=== PATIENT | male | born 1970 | race Hispanic/Latino ===

== ENCOUNTER → 2017-06-19 | Day surgery (SDC) | payer OTHER ==
[~2017-06-19] VITALS: Ht 185.4 cm; Wt 139.3 kg
[~2017-06-19] MED LIST: ACETAMINOPHEN325 M2 PO
--- NOTE | 2017-06-19 15:13 | Operative Report ---
Operative/Inv Procedure Report Surgery Date: 06/19/17 Name of Procedure: Cystoscopy, left ureteroscopy, laser lithotripsy of left midureteral calculi, laser lithotripsy of left renal calculi, insertion of left double-J ureteral stent Pre-Operative Diagnosis: Left ureteral and left renal calculi Post-Operative Diagnosis: Same Estimated Blood Loss: less than 50ml Surgeon/Senior Care Manager: Cody Bean MD Anesthesia: laryngeal mask airway Specimens: Left ureteral stone fragments and the urine culture Complications: None Condition: Stable Operative Indication: Left hydronephrosis due to left ureteral calculi, nonobstructing left lower pole renal calculi Operative/Procedure Note Note: The patient was taken to the cystoscopy room and identified. As placed in supine position on the cystoscopy table. Timeout was executed appropriately with the patient awake. Gen. anesthesia was induced via LMA. He was then placed in dorsolithotomy position and prepped and draped in usual fashion for cystoscopy. A surgical pause was executed appropriately. Fluoroscopy images taken with a marker on the left side of the abdomen to confirm the correct side of surgery as well as a correct orientation of the fluoroscopy image. No opaque calculus in the lower pole of the left kidney as well as in the left midureter about 2 cm above the inferior border of the left sacroiliac joint. A 22 American cystoscope sheath was placed into the bladder under direct vision. Anterior urethra was normal. The prostatic urethra showed mild hypertrophy but without high-grade lateral obstruction. Upon entering the bladder cystoscopy was performed. There is no evidence of bladder tumor or stone. Ureteral orifices were both normal in location and appearance. A guidewire was placed into the left ureteral orifice and advance up to the level of the left kidney. The cystoscope was removed leaving the guidewire in place. The rigid ureteroscope was advanced through the urethra into the left ureter. A couple centimeters above the lower border of the left sacroiliac joint at least 2 stones were seen. Using the 225 holmium laser fiber the stones were fragmented. Spiral basket was used to remove some of the fragments. At this point the rigid ureteroscope was advanced proximally as far as possible. The ureter above this area was dilated but there were no further stone seen. This point a double-lumen dilating catheter was placed over the guidewire. Over the second wire was placed a ureteral access sheath. With the safety wire and placed the flexible ureteroscope was advanced through the access sheath. The proximal ureter was dilated but without stones. Upon entering the bladder the renal pelvis was free of stones. However in the lower pole a sizable stone was seen. Using the holmium laser the stone in the lower pole left kidney was partially fragmented. It was difficult to manipulate the laser fiber to completely fragment the stone. The ureteroscope was then removed together with the ureteral access sheath. No ureteral stones were seen. Cystoscope was back loaded onto the guidewire. Open -ended catheter was placed over the wire and the wire removed. Some contrast was injected to outline the left renal collecting system. Guidewire was placed back through the open-ended catheter which was removed. Under visual fluoroscopic control a 26 cm 6 American left double-J ureteral stent was placed. Fluoroscopy confirmed the proximal and the stent coiled in the left renal pelvis and the distal end coiled in the bladder. A long suture was left attached the distal end of the stent exiting the urethra. Patient tolerated the procedure well and as completion was taken recovery room in stable condition. Findings: Several stones in the left ureter just above the inferior border of the left sacroiliac joint, 1-1/2 cm stone in the lower pole left kidney Discharge Disposition: PACU
--- NOTE | 2017-06-20 16:20 | RADIOLOGY REPORT ---
EXAMINATION: XR ABDOMEN CLINICAL INDICATION: Left ureteroscopy, lithotripsy, retrograde and stent insertion in the operating room. COMPARISON: None. TECHNIQUE: Intraoperative fluoroscopic guidance was provided for Dr. Bean to perform the above procedures. FLUOROSCOPY TIME: 59 seconds. FLUOROSCOPIC IMAGES PROVIDED FOR INTERPRETATION: 10 FINDINGS: Intraoperative fluoroscopic spot views demonstrate retrograde nephroureterograms demonstrating filling defects within the left collecting system. A double-J stent is placed. IMPRESSION: Retrograde left internal ureteral stent placement. Refer to operative notes for details.
== END ==
LOC: STS 03:37
DX: N20.2 Calculus of kidney with calculus of ureter (principal); Z87.442 Personal history of urinary calculi; R10.9 Unspecified abdominal pain; E66.01 Morbid (severe) obesity due to excess calories
CPT/HCPCS: 74018; 87086; C2617; J0131; J0690; J1100; J1885; J2250; J2405